=== PATIENT | female | born 1995 | race Caucasian/White ===

== ENCOUNTER 2019-06-16 07:55 | Inpatient (IN) | payer BC ==
[~2019-06-16 07:55] MED LIST: Bupivacaine/fentaNYL/NS 100 ML Bag ONE; Lidocaine 2% with EPINEPHrine 1:200,000 20 ML SDV ONE
--- NOTE | 2019-06-16 09:15 | US ---
Biophysical profile: Multiple real-time images were obtained. Comparison: Previous obstetrical ultrasounds are available, most recent exam is 06/15/19. presentation: Cephalic Placenta: Left sided and posterior Amniotic fluid: KADI 16.2 cm Biophysical profile: movement 2, breathing movement 2, tone 2, amniotic fluid volume 2 Impression: 1. 8 out of 8 on biophysical profile. Diagnostic code #1 This report was dictated in [place] Standard Time
[2019-06-16] MEDS ORDERED: Misoprostol 25 MCG (1/4 of 100 MCG) Tab ONE (10:14)
[2019-06-16] MEDS ORDERED: Sodium Chloride 0.9% 10 ML Syringe FLUSH PRN ×2 (10:32→20:14)
[2019-06-16] MEDS ORDERED: Nalbuphine 10 MG/1 ML Vial IVPUSH PRN (10:32)
[2019-06-16] MEDS ORDERED: Lactated Ringers 1,000 ML IV SCH (10:45)
[2019-06-16] MEDS ORDERED: Oxytocin/Lactated Ringers 10 UNIT/1,000 ML BAG IV SCH ×2 (10:45)
--- NOTE | 2019-06-16 11:01 | PCM.LDHP ---
L&D History of Present Illness - General Date of Service: 06/16/19 Admit Problem/Dx: Patient Status Order with Admit Dx/Problem 06/16/19 08:04 Patient Status [ADT] Routine Admission Diagnosis/Problem Admission Diagnosis/Problem Source of Information: Patient History Limitations: Reports: No Limitations - History of Present Illness Introduction:: 23 Y/O NAGI 07/10/2019 EGA 36w4d with persistent pruritus which has gotten worse since yesterday. Patient has been seen daily since Monday. BPP's 02/21 and reactive NST's daily since 06/12/2019. Patient's itching worsened since yesterday especially hands and feet. Live function labs reviewed. Cervix 1 cm, 50%, soft, posterior, vertex -2. GBS negative 06/12/2019 Contractions on NST q3min. Due to change in symptoms (increased pruritus) and contractions on NST, beginning medically indicated induction to try to avoid sudden intrauterine demise which can be associated cholestasis of (bile salts pending) /01/02 blood type A positive, antibody screen negative, hemoglobin/hematocrit 13.9/38.5, platelets 239,000, rubella immune, serology nonreactive, urine culture negative, HIV and hepatitis B surface antigen negative. GC and chlamydia probe negative. 04/10/19 hemoglobin/hematocrit 12.5 35.7 platelets 243,001 hour OB glucose screen 94 serology nonreactive. 06/12/19 GBS negative Plan medically indicated induction of labor 36 weeks 4 days due to increased severity of pruritus suspected cholestasis of . Contractions every 3 minutes on NST will augment with Cytotec. Cytotec 50 g placed intravaginally at 1020 hrs. Will repeat every 4 hours for 2 more doses and then reevaluated probably begin Pitocin. Timing/Duration: Reports: minutes: (Contractions every 3 minutes on nonstress test this morning (no contractions yesterday)) Location, : Reports: Abdomen, Lower back Quality: Reports: Ache, Dull Severity: Mild Pain Score: 2 Improves with: Reports: None Worsens with: Reports: None Associated Symptoms: Reports: N - Related Data Allergies/Adverse Reactions: Allergies Allergy/AdvReac Type Severity Reaction Status Date / Time No Known Allergies Allergy Verified 06/12/19 17:26 Home Medications: Home Meds Calcium Carbonate [Calcium] 1 tab PO DAILY 06/12/19 [History] Ferrous Sulfate [Iron] 1 tab PO DAILY 06/12/19 [History] Vit/FA/Fe Fumarate/Se [ MTR] 1 tab PO DAILY 06/12/19 [History] Nitrofurantoin Monohyd/M-Cryst [Macrobid 100 mg Capsule] 100 mg PO BID #20 capsule 06/13/19 [Rx] Potassium Chloride [K-Tab] 10 meq PO DAILY #30 tablet.er 06/15/19 [Rx] H&P Review of Systems - Review of Systems: Review Of Systems: See Below General: Reports: Other (Generalized pruritus with increased itching of palms and soles of feet since yesterday.) HEENT: Reports: No Symptoms Pulmonary: Reports: No Symptoms Cardiovascular: Reports: No Symptoms Gastrointestinal: Reports: No Symptoms Genitourinary: Reports: No Symptoms Musculoskeletal: Reports: No Symptoms Skin: Reports: No Symptoms Psychiatric: Reports: No Symptoms Neurological: Reports: No Symptoms Hematologic/Lymphatic: Reports: No Symptoms Immunologic: Reports: No Symptoms L&D Exam - Exam Exam: See Below - Vital Signs Weight: 153 lb 6.4 oz - OB Specific Fundal Height In cm: 36 Contraction Duration (sec): 45 Contraction Frequency (min): 3-5 Contraction Intensity: Mild Movement: Active Heart Tones: Present Heart Tones per Min: 135 Heart Rate (FHR) Variability: Moderate (6-25 bmp) Presentation: Vertex - Britton Score Britton Score Cervix Position: Posterior Britton Score Consistency: Soft Britton Score Effacement: 31-50% Britton Score Dilation: 1-2 cm Britton Score Infant's Station: -2 Britton Score Total: 5 - Exam General: Alert, Oriented HEENT: Conjunctiva Clear, Mucosa Moist & [place] Neck: Supple, Trachea Midline Lungs: Clear to Auscultation, Normal Respiratory Effort Cardiovascular: Regular Rate, Regular Rhythm GI/Abdominal Exam: Normal Bowel Sounds, Soft, Non-Tender Genitourinary: Normal external exam Extremities: Normal Inspection, Non-Tender, No Pedal Edema, Normal Capillary Refill Skin: Warm, Dry, Intact Psychiatric: Alert, Normal Affect, Normal Mood - Patient Data Lab Results Last 24 hrs: Laboratory Results - last 24 hr 06/16/19 06/16/19 Range/Units 08:20 08:20 WBC 9.66 (3.98-10.04) K/mm3 RBC 4.21 (3.98-5.22) M/mm3 Hgb 13.3 (11.2-15.7) gm/dl Hct 38.6 (34.1-44.9) % MCV 91.7 (79.4-94.8) fl MCH 31.6 (25.6-32.2) pg MCHC 34.5 (32.2-35.5) g/dl RDW Std Deviation 40.3 (36.4-46.3) fL Plt Count 271 (182-369) K/mm3 MPV 10.2 (9.4-12.3) fl Neut % (Auto) 71.9 H (34.0-71.1) % Lymph % (Auto) 17.0 L (19.3-51.7) % [place] % (Auto) 8.2 (4.7-12.5) % Eos % (Auto) 0.7 (0.7-5.8) Baso % (Auto) 0.4 (0.1-1.2) % Neut # (Auto) 6.95 H (1.56-6.13) K/mm3 Lymph # (Auto) 1.64 (1.18-3.74) K/mm3 [place] # (Auto) 0.79 H (0.24-0.36) K/mm3 Eos # (Auto) 0.07 (0.04-0.36) K/mm3 Baso # (Auto) 0.04 (0.01-0.08) K/mm3 Manual Slide Review Normal smear Sodium 136 (136-145) mEq/L Potassium 3.3 L (3.5-5.1) mEq/L Chloride 103 (98-107) mEq/L Carbon Dioxide 24 (21-32) mEq/L Anion Gap 12.3 (5-15) BUN 5 L (7-18) mg/dL Creatinine 0.6 (0.55-1.02) mg/dL Est Cr Clr Drug Dosing 130.10 mL/min Estimated GFR (MDRD) > 60 (>60) mL/min BUN/Creatinine Ratio 8.3 L (14-18) Glucose 119 H (74-106) mg/dL Calcium 8.2 L (8.5-10.1) mg/dL Total Bilirubin 1.0 (0.2-1.0) mg/dL GGT 13 (5-55) U/L AST 107 H (15-37) U/L ALT 320 H (14-59) U/L Alkaline Phosphatase 159 H (46-116) U/L Total Protein 6.7 (6.4-8.2) g/dl Albumin 2.7 L (3.4-5.0) g/dl Globulin 4.0 gm/dL Albumin/Globulin Ratio 0.7 L (1-2) Result Diagrams: 06/16/19 08:20 06/16/19 08:20 - Problem List (1) Itch of skin SNOMED Code(s): 522258731 ICD Code: L29.9 - PRURITUS, UNSPECIFIED Status: Acute Current Visit: Yes (2) Hypokalemia SNOMED Code(s): 85272887 ICD Code: E87.6 - HYPOKALEMIA Status: Acute Current Visit: Yes (3) 36 weeks gestation of SNOMED Code(s): 48508822 ICD Code: Z3A.36 - 36 WEEKS GESTATION OF Status: Acute Current Visit: No (4) Abnormal liver enzymes SNOMED Code(s): 345651843 ICD Code: R74.8 - ABNORMAL LEVELS OF OTHER SERUM ENZYMES Status: Acute Current Visit: No Problem List Initiated/Reviewed/Updated: No Orders Last 24hrs: Active Orders 24 hr Category Date Time Status Patient Status [ADT] Routine ADT 06/16/19 08:04 Active Activity as Tolerated [RC] PFP Care 06/16/19 10:32 Active Communication Order [RC] ASDIRECTED Care 06/16/19 10:32 Active Heart Tones [RC] ASDIRECTED Care 06/16/19 10:34 Active Non Stress Test [RC] PER UNIT ROUTINE Care 06/16/19 08:04 Active Notify Provider [RC] PFP Care 06/16/19 10:32 Active Notify Provider [RC] PRN Care 06/16/19 10:32 Active Peripheral IV Care [RC] . DIRECTED Care 06/16/19 10:34 Active Vital Signs [RC] PER UNIT ROUTINE Care 06/16/19 08:04 Active Regular Diet [DIET] Diet 06/16/19 Breakfast Active RAPID PLASMA REAGIN,RPR [CHEM] Routine Lab 06/16/19 10:32 Ordered TYPE AND SCREEN [BBK] Stat Lab 06/16/19 10:32 Ordered Lactated Ringers [Ringers, Lactated] 1,000 ml Med 06/16/19 10:45 Active IV ASDIRECTED Nalbuphine [Nubain] Med 06/16/19 10:32 Active 10 mg IVPUSH Q2H PRN Oxytocin/Lactated Ringers [Pitocin in LR 10 Units/1,000 Med 06/16/19 10:45 Active ML] 10 unit in 1,000 ml IV .CONTINUOUS Oxytocin/Lactated Ringers [Pitocin in LR 10 Units/1,000 Med 06/16/19 10:45 Active ML] 10 unit in 1,000 ml IV TITRATE Sodium Chloride 0.9% [Saline Flush] Med 06/16/19 10:32 Active 10 ml FLUSH ASDIRECTED PRN miSOPROStoL [Cytotec] Med 06/16/19 14:30 Active 50 mcg VAG Q4HR Electronic Heart Tones Ext w TOCO [WOMSER] Oth 06/16/19 10:32 Ordered Routine Electronic Heart Tones Internal [WOMSER] Per Unit Oth 06/16/19 10:32 Ordered Routine Peripheral IV Insertion Adult [OM.PC] Routine Oth 06/16/19 10:32 Ordered Resuscitation Status Routine Resus Stat 06/16/19 08:04 Ordered Medication Orders Lactated Ringer's (Ringers, Lactated) 1,000 mls @ 100 mls/hr IV ASDIRECTED JENNIFER Oxytocin/Lactated Ringer's (Pitocin In Lr 10 Units/1,000 Ml) 10 unit in 1,000 mls @ 100 mls/hr IV .CONTINUOUS JENNIFER Oxytocin/Lactated Ringer's (Pitocin In Lr 10 Units/1,000 Ml) 10 unit in 1,000 mls @ 12 mls/hr IV TITRATE JENNIFER; Protocol Misoprostol (Cytotec) 50 mcg VAG Q4HR JENNIFER Nalbuphine HCl (Nubain) 10 mg IVPUSH Q2H PRN PRN Reason: Pain Sodium Chloride (Saline Flush) 10 ml FLUSH ASDIRECTED PRN PRN Reason: Keep Vein Open Assessment/Plan Comment:: Line: Medically indicated induction of labor due to suspected cholestasis of with increased severity of symptoms. EFW 6 /2 pounds
[2019-06-16] MEDS: Potassium Chloride 20 MEQ Tab.ER PO SCH (12:34)
--- NOTE | 2019-06-16 16:11 | PCM.SN ---
- Free Text/Narrative Note: 06/16/2019 1602 amniotomy performed, clear fluid, cervix 3 cm, 70%, soft, mid- position, vertex -1 station. Early decelerations with contractions.
[2019-06-16] MEDS ORDERED: diphenhydrAMINE 50 MG/ML SDV IVPUSH PRN ×2 (16:53→20:14)
[2019-06-16] MEDS ORDERED: fentaNYL 100 MCG/2 ML SDV EPIDUR PRN (16:53)
[2019-06-16] MEDS ORDERED: fentaNYL/Bupivacaine/NS 2 MCG-0.125% 250 ML EPIDUR PRN (16:53)
[2019-06-16] MEDS ORDERED: ePHEDrine 50 MG/ML SDV IVPUSH PRN ×2 (16:53→20:14)
[2019-06-16] MEDS ORDERED: Propofol 200 MG/20 ML SDV ONE (18:02)
[2019-06-16] MEDS ORDERED: Succinylcholine/Normal Saline 100 MG/5 ML Syringe ONE (18:02)
[2019-06-16] MEDS ORDERED: ePHEDrine/Normal Saline 25 MG/5 ML Syringe ONE (18:16)
[2019-06-16] MEDS ORDERED: Oxytocin 10 Units/1 ML SDV ONE (18:16)
[2019-06-16] MEDS ORDERED: Morphine PF 10 MG/10 ML SDV ONE (18:18)
[2019-06-16] MEDS ORDERED: Dexamethasone 4 MG/ML SDV ONE (18:26)
[2019-06-16] MEDS ORDERED: Ketorolac 30 MG/ML SDV ONE (18:26)
[2019-06-16] MEDS ORDERED: Ondansetron 4 MG/2 ML SDV ONE (18:26)
[2019-06-16] MEDS ORDERED: ceFAZolin 1 GM Vial ONE (18:53)
--- NOTE | 2019-06-16 19:08 | PCM.OPNOTE ---
- General Post-Op/Procedure Note Date of Surgery/Procedure: 06/16/19 Operative Procedure(s): Primary low segment transverse emergency 2 layer closure Pre Op Diagnosis: Nonreassuring heart tones with severe variable deceleration Post-Op Diagnosis: Same plus nuchal cord 1 tight Anesthesia Technique: Epidural, General ET Tube Primary Surgeon: Bebeto Purdy Anesthesia Provider: Pepe Nation Order Entry Specialist: Melissa Giraldo (ESTEVAN) Reason Order Entry Specialist Was Necessary: Emergency section without Asst. Role of Order Entry Specialist: Emergency section without Asst. Fluid Replacement, Intraop: 1,800 Output, Urine Amount: 600 EBL in mLs: 200 Drain/Tube Comments:: Rangel Complications: Emergency section unable to count instruments and sponges prior to surgery x-ray was obtained prior to patient leaving the operating room and no indication of retained instrument or sponges. One wire was overlying the right internal jugular region was external to the patient on anterior chest and the wire noted at L3-L4 was epidural catheter Condition: Good Free Text/Narrative:: Patient had sudden heart tone decelerations without recovery into the range of 50-60s and a emergency section was called at 1757. Patient was transported rapidly to the operating room in labor and delivery arriving in 1800 hrs. Rangel catheter was placed to gravity drainage. Iodine was poured over the area of the planned incision. Draped in a sterile fashion. An emergency section begun at 1806 hrs. the incision was made transversely menses Pfannenstiel) care was sharp section to into the anterior fascia. Peritoneal cavity was entered without difficulty. A low segment transverse was performed without time to perform a bladder flap because of the emergency nature of the procedure. Fluid was clear upon entry into the abdominal cavity the male liveborn was delivered at 1810 hrs. nuchal cord 1 tight reduced without difficulty over the head. Apgars 6/9 weight 2080 grams/[address] Obando hotel services sales representative present at delivery and cared for the . A section of cord was taken for arterial and venous blood gases. The arterial blood gas collected at 1810 and run at 1825 hrs. pH 7.13, PCO2 79.7, PO2 21; venous blood gases run at 1827 pH 7.22, PCO2 56.4, PO2 of 39. Cord blood was collected from three-vessel cord. The placenta was removed manually inspected and discarded. Endometrial cavity was inspected the uterine incision was closed in 2 layers first layer running locking suture of 0 Monocryl, second layer horizontal imbricating suture modified Lembert type. Both tubes and ovaries were normal clot screen from the gutters and the uterus placed into the abdominal cavity. The anterior fascia was closed with #1 PDS running suture. Irrigation was carried out and the skin was closed with subcuticular 3-0 Monocryl on Saul needle and Dermabond Preneo placed over the incision. Clots were cleaned from the vagina at the end procedure. Because of the emergent nature of the procedure time was not available to count instruments and sponges and lap tapes. An x-ray was obtained while the patient was in the operating room showing the entire abdomen and chest (2 films) and no lap tapes sponges or instruments visualized by me or by radiologist reading the x-rays. The only abnormalities noted by the radiologist were "a wire extending from the right internal jugular region just to the right of the thoracic spine into the abdomen with the distal end overlying the lumbar spine". "This is suspected to be outside the patient". (That is correct the lead for anesthesia on anterior chest) and "a circular wire density overlying L3-L4 disc space of indeterminate nature" (epidural catheter removed after surgery and after the x- ray) Patient was transported to postanesthesia care unit after the x-ray reading was reported. No blood transfusions required. Patient did receive Ancef 2 g intravenously after the incision had been made on the abdomen. This note was created, at least in part, by the use of Curse voice dictation system. Inadvertent typographical errors, due to software recognition problems, may exist.
--- NOTE | 2019-06-16 19:14 | PCM.POSTAN ---
POST ANESTHESIA ASSESSMENT - MENTAL STATUS Mental Status: Alert, Oriented - VITAL SIGNS Vital Signs: Last Vital Signs Temp 37.1 C 06/16/19 08:58 Pulse 90 06/16/19 08:58 Resp 18 06/16/19 08:58 BP 120/71 06/16/19 08:58 Pulse Ox 100 06/16/19 08:58 - RESPIRATORY Respiratory Status: Respiratory Rate WNL, Airway Patent, O2 Saturation Stable - CARDIOVASCULAR CV Status: Pulse Rate WNL, Blood Pressure Stable - GASTROINTESTINAL GI Status: No Symptoms - PAIN Pain Score: 0 - POST OP HYDRATION Hydration Status: Adequate & Stable - OBSERVATIONS Free Text/Narrative:: Case went as well as could be expected under the conditions. Patient resting in PACU. Awake. Oriented X4. 0/10 pain. VSS, SV, CTAB. No complications.
--- NOTE | 2019-06-16 19:17 | PCM.PREANE ---
Preanesthetic Assessment - Procedure Proposed Procedure: JOSIANE - Anesthesia/Transfusion/Family Hx Anesthesia History: Prior Anesthesia Without Reaction Family History of Anesthesia Reaction: No Transfusion History: No Prior Transfusion(s) Anesthesia/Transfusion Comment: No previous anesthesia problems or difficulties with intubation per patient - Review of Systems General: No Symptoms Pulmonary: No Symptoms Cardiovascular: No Symptoms Gastrointestinal: No Symptoms Neurological: No Symptoms Other: Reports: None - Physical Assessment NPO Status Date: 06/16/19 NPO Status Time: 17:00 (patient considered full stomach) Vital Signs: Last Vital Signs Temp 37.1 C 06/16/19 08:58 Pulse 90 06/16/19 08:58 Resp 18 06/16/19 08:58 BP 120/71 06/16/19 08:58 Pulse Ox 100 06/16/19 08:58 Height: 5 ft 5 in Weight: 69.581 kg ASA Class: 1 Mental Status: Alert & Oriented x3 Airway Class: Mallampati = 1 Dentition: Reports: Normal Dentition Thyro-Mental Finger Breadths: 3 Mouth Opening Finger Breadths: 3 ROM/Head Extension: Full Lungs: Clear to Auscultation, Normal Respiratory Effort Cardiovascular: Regular Rate, Regular Rhythm - Lab Values: Laboratory Last Values WBC 9.66 K/mm3 (3.98-10.04) 06/16/19 08:20 RBC 4.21 M/mm3 (3.98-5.22) 06/16/19 08:20 Hgb 13.3 gm/dl (11.2-15.7) 06/16/19 08:20 Hct 38.6 % (34.1-44.9) 06/16/19 08:20 MCV 91.7 fl (79.4-94.8) 06/16/19 08:20 MCH 31.6 pg (25.6-32.2) 06/16/19 08:20 MCHC 34.5 g/dl (32.2-35.5) 06/16/19 08:20 RDW Std Deviation 40.3 fL (36.4-46.3) 06/16/19 08:20 Plt Count 271 K/mm3 (182-369) 06/16/19 08:20 MPV 10.2 fl (9.4-12.3) 06/16/19 08:20 Neut % (Auto) 71.9 % (34.0-71.1) H 06/16/19 08:20 Lymph % (Auto) 17.0 % (19.3-51.7) L 06/16/19 08:20 [place] % (Auto) 8.2 % (4.7-12.5) 06/16/19 08:20 Eos % (Auto) 0.7 (0.7-5.8) 06/16/19 08:20 Baso % (Auto) 0.4 % (0.1-1.2) 06/16/19 08:20 Neut # (Auto) 6.95 K/mm3 (1.56-6.13) H 06/16/19 08:20 Lymph # (Auto) 1.64 K/mm3 (1.18-3.74) 06/16/19 08:20 [place] # (Auto) 0.79 K/mm3 (0.24-0.36) H 06/16/19 08:20 Eos # (Auto) 0.07 K/mm3 (0.04-0.36) 06/16/19 08:20 Baso # (Auto) 0.04 K/mm3 (0.01-0.08) 06/16/19 08:20 Manual Slide Review Normal smear 06/16/19 08:20 Sodium 136 mEq/L (136-145) 06/16/19 08:20 Potassium 3.3 mEq/L (3.5-5.1) L 06/16/19 08:20 Chloride 103 mEq/L (98-107) 06/16/19 08:20 Carbon Dioxide 24 mEq/L (21-32) 06/16/19 08:20 Anion Gap 12.3 (5-15) 06/16/19 08:20 BUN 5 mg/dL (7-18) L 06/16/19 08:20 Creatinine 0.6 mg/dL (0.55-1.02) 06/16/19 08:20 Est Cr Clr Drug Dosing 130.10 mL/min 06/16/19 08:20 Estimated GFR (MDRD) > 60 mL/min (>60) 06/16/19 08:20 BUN/Creatinine Ratio 8.3 (14-18) L 06/16/19 08:20 Glucose 119 mg/dL (74-106) H 06/16/19 08:20 Calcium 8.2 mg/dL (8.5-10.1) L 06/16/19 08:20 Total Bilirubin 1.0 mg/dL (0.2-1.0) 06/16/19 08:20 GGT 13 U/L (5-55) 06/16/19 08:20 AST 107 U/L (15-37) H 06/16/19 08:20 ALT 320 U/L (14-59) H 06/16/19 08:20 Alkaline Phosphatase 159 U/L (46-116) H 06/16/19 08:20 Total Protein 6.7 g/dl (6.4-8.2) 06/16/19 08:20 Albumin 2.7 g/dl (3.4-5.0) L 06/16/19 08:20 Globulin 4.0 gm/dL 06/16/19 08:20 Albumin/Globulin Ratio 0.7 (1-2) L 06/16/19 08:20 Blood Type A POSITIVE 06/16/19 08:20 Gel Antibody Screen Negative 06/16/19 08:20 - Allergies Allergies/Adverse Reactions: Allergies Allergy/AdvReac Type Severity Reaction Status Date / Time No Known Allergies Allergy Verified 06/12/19 17:26 - Anesthesia Plan Pre-Op Medication Ordered: None - Acknowledgements Anesthesia Type Planned: Epidural Pt an Appropriate Candidate for the Planned Anesthesia: Yes Alternatives and Risks of Anesthesia Discussed w Pt/Guardian: Yes Pt/Guardian Understands and Agrees with Anesthesia Plan: Yes PreAnesthesia Questionnaire Other HEENT History: wears glasses Other Cardiovascular History: hx of murmur when small MARKETING OPERATIONS ANALYST History: Reports: , Spontaneous - Past Surgical History Other Musculoskeletal Surgeries/Procedures:: 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 - SUBSTANCE USE Smoking Status *Q: Never Smoker Second Hand Smoke Exposure: No Recreational Drug Use History: No - HOME MEDS Home Medications: Home Meds Calcium Carbonate [Calcium] 1 tab PO DAILY 06/12/19 [History] Ferrous Sulfate [Iron] 1 tab PO DAILY 06/12/19 [History] Vit/FA/Fe Fumarate/Se [ MTR] 1 tab PO DAILY 06/12/19 [History] Nitrofurantoin Monohyd/M-Cryst [Macrobid 100 mg Capsule] 100 mg PO BID #20 capsule 06/13/19 [Rx] Potassium Chloride [K-Tab] 10 meq PO DAILY #30 tablet.er 06/15/19 [Rx] - CURRENT (IN HOUSE) MEDS Current Meds: Current Medications Diphenhydramine HCl (Benadryl) 25 mg IVPUSH Q6H PRN PRN Reason: pruritis Ephedrine Sulfate (Ephedrine Sulfate) 5 mg IVPUSH ASDIRECTED PRN PRN Reason: Hypotension Fentanyl (Sublimaze) 100 mcg EPIDUR Q3H PRN PRN Reason: Pain Fentanyl/Bupivacaine HCl (Fentanyl/Bupivacaine/Ns 2 Mcg-0.125% 250 Ml) 250 ml EPIDUR CONTINUOUS PRN PRN Reason: Pain Lactated Ringer's (Ringers, Lactated) 1,000 mls @ 100 mls/hr IV ASDIRECTED JENNIFER Oxytocin/Lactated Ringer's (Pitocin In Lr 10 Units/1,000 Ml) 10 unit in 1,000 mls @ 100 mls/hr IV .CONTINUOUS JENNIFER Oxytocin/Lactated Ringer's (Pitocin In Lr 10 Units/1,000 Ml) 10 unit in 1,000 mls @ 12 mls/hr IV TITRATE JENNIFER; Protocol Misoprostol (Cytotec) 50 mcg VAG Q4HR JENNIFER Nalbuphine HCl (Nubain) 10 mg IVPUSH Q2H PRN PRN Reason: Pain Sodium Chloride (Saline Flush) 10 ml FLUSH ASDIRECTED PRN PRN Reason: Keep Vein Open Discontinued Medications Cefazolin Sodium (Ancef) Confirm Administered Dose 2 gm .ROUTE .STK-MED ONE Stop: 06/16/19 18:54 Dexamethasone (Dexamethasone) Confirm Administered Dose 4 mg .ROUTE .STK-MED ONE Stop: 06/16/19 18:27 Ephedrine Sulfate (Ephedrine In Ns) Confirm Administered Dose 25 mg .ROUTE .STK- MED ONE Stop: 06/16/19 18:17 Ketorolac Tromethamine (Toradol) Confirm Administered Dose 30 mg .ROUTE .STK- MED ONE Stop: 06/16/19 18:27 Misoprostol (Cytotec) Confirm Administered Dose 50 mcg .ROUTE .STK-MED ONE Stop: 06/16/19 10:15 Last Admin: 06/16/19 10:30 Dose: 50 mcg Morphine Sulfate (Duramorph Pf) Confirm Administered Dose 10 mg .ROUTE .STK-MED ONE Stop: 06/16/19 18:19 Ondansetron HCl (Zofran) Confirm Administered Dose 4 mg .ROUTE .STK-MED ONE Stop: 06/16/19 18:27 Oxytocin (Pitocin) Confirm Administered Dose 20 unit .ROUTE .STK-MED ONE Stop: 06/16/19 18:17 Potassium Chloride (Klor-Con M20) 20 meq PO Q4H JENNIFER Stop: 06/16/19 16:31 Last Admin: 06/16/19 12:34 Dose: 20 meq Propofol (Diprivan 20 Ml) Confirm Administered Dose 200 mg .ROUTE .STK-MED ONE Stop: 06/16/19 18:03 Succinylcholine Chloride (Succinylcholine In Ns Pf) Confirm Administered Dose 100 mg .ROUTE .STK-MED ONE Stop: 06/16/19 18:03
--- NOTE | 2019-06-16 19:29 | PCM.SN ---
- Free Text/Narrative Note: I was called at [address] a labor epidural and to assist placing a PIV. I arrived about 1700 to the patient's room. She was having labor pain and needed an IV. I proceeded to place the IV X1 attempt in her right AC (20g). After that I interviewed the patient and consented her for labor epidural and possible general anesthetic. When we placed the patient in the sitting position the baby decelerated. We laid her in the lateral position and the baby recovered. The physician was called due to the concern. We elected to place the epidural laterally, which I did routinely. There was negative heme, negative dysthesia, negative CSF, easy threading of the catheter, and negative aspiration and test dose with 3 mL 1.5% lidocaine in 1:200,000 epinephrine. I then proceeded to start the continuous rate of the stock solution at 10 mL/hour , as well as administer a 100 mcg fentanyl bolus through the epidural catheter. The physician arrived at the bedside and began to examine the patient. The test dose was placed at 1743 and a stat section was called at 1757. We hurriedly went to the OR where a successful was performed.
[2019-06-16] MEDS ORDERED: Acetaminophen 325 MG Tab PO PRN (20:14)
[2019-06-16] MEDS ORDERED: Naloxone 0.4 MG/ML SDV IVPUSH PRN (20:14)
[2019-06-16] MEDS ORDERED: Witch Hazel Medicated Pads 40/Jar TOP PRN (20:14)
[2019-06-16] MEDS ORDERED: Oxytocin/Lactated Ringers 20 UNIT/1,000 ML BAG IV SCH (20:14)
[2019-06-16] MEDS ORDERED: Dextrose 5%-Lactated Ringers 1,000 ML IV SCH (20:14)
[2019-06-16] MEDS: Simethicone 80 MG Tab.Chew PO SCH (22:52)
[2019-06-17] MEDS ORDERED: ceFAZolin 1 GM Vial IV SCH
[2019-06-17] MEDS: ceFAZolin 1 GM in Premix Bag 1 BAG IV SCH ×3 (00:39→12:28)
[2019-06-17] MEDS: Ketorolac 30 MG/ML SDV IVPUSH SCH ×3 (00:40→12:28)
[2019-06-17] MEDS ORDERED: Ondansetron 4 MG/2 ML SDV IVPUSH ONE (00:48)
--- NOTE | 2019-06-17 08:00 | PCM.SN ---
- Free Text/Narrative Note: PPD/POD #1 Afebrile. No heavy vaginal bleeding. Incision has no drainage per patient ( patient holding baby) no leg cramping. Patient is stable. Hemoglobin/hematocrit 13.3/38.6 and this morning 10.9/32.
[2019-06-17] MEDS: Simethicone 80 MG Tab.Chew PO SCH ×3 (08:39→18:51)
--- NOTE | 2019-06-17 09:32 | CR ---
Abdomen: Supine view of the abdomen was obtained. Comparison: No prior abdominal imaging. Findings: Endotracheal tube is seen with tip lying at the level of the clavicles. Catheter is seen overlying the right chest and mid right abdomen, uncertain as to etiology. Haziness within the pelvis is seen most likely representing uterus. Bowel gas pattern is normal. No radiopaque foreign object is seen. Finding showing increased density within the rim around an oval object overlying the L3-L4 interspace. Impression: 1. Oval rim area of increased density overlying the interspace of L3-L4. Difficult to exclude a retained surgical material. 2. Other findings which are felt to be incidental as noted above. Diagnostic code #3 This report was dictated in [place] Standard Time I agree with preliminary report issued by [facility] ([facility] report finalized on 06/16/19, 7:52 PM Central Time)
[2019-06-17] MEDS: Acetaminophen/oxyCODONE 325-5 MG Tab PO PRN (13:28)
[2019-06-17] MEDS: Potassium Chloride 20 MEQ Tab.ER PO SCH (14:28)
[2019-06-17] MEDS: Misoprostol 25 MCG (1/4 of 100 MCG) Tab VAG SCH (14:31)
[2019-06-17] MEDS: Ibuprofen 600 MG Tab PO PRN (18:51)
[2019-06-18] MEDS: Acetaminophen/oxyCODONE 325-5 MG Tab PO PRN ×4 (00:40→22:05)
[2019-06-18] MEDS: Simethicone 80 MG Tab.Chew PO SCH ×4 (02:32→22:05)
--- NOTE | 2019-06-18 07:28 | PCM.SN ---
- Free Text/Narrative Note: Afebrile, doing well. Uterus involuting, incision healing well, no heavy vaginal bleeding, no leg raven or cramping. Probably home tomorrow. Baby having difficulty latching on for breast feeding.
[2019-06-18] MEDS: Docusate Sodium 100 MG Cap PO PRN (22:07)
[2019-06-19] MEDS: Simethicone 80 MG Tab.Chew PO SCH ×3 (01:01→14:08)
[2019-06-19] MEDS: Acetaminophen/oxyCODONE 325-5 MG Tab PO PRN ×3 (03:10→14:04)
[2019-06-19] MEDS: Docusate Sodium 100 MG Cap PO PRN (03:16)
--- NOTE | 2019-06-19 08:05 | PCM.DCSUM1 ---
Discharge Summary - Hospital Course Free Text/Narrative:: [facility] Post-Op/Procedure Note Patient Name: ADY AGUAYO Date of : 89 Patient Status: Inpatient Attending Provider: Bebeto Purdy Date: 06/16/19 19:02 Initialization Date: 06/16/19 19:02 - General Post-Op/Procedure Note Date of Surgery/Procedure: 06/16/19 Operative Procedure(s): Primary low segment transverse emergency 2 layer closure Pre Op Diagnosis: Nonreassuring heart tones with severe variable deceleration Post-Op Diagnosis: Same plus nuchal cord 1 tight Anesthesia Technique: Epidural, General ET Tube Primary Surgeon: Bebeto Purdy Anesthesia Provider: Pepe Nation Hide Spreader: Melissa Giraldo (PAS) Reason Hide Spreader Was Necessary: Emergency section without Asst. Role of Hide Spreader: Emergency section without Asst. Fluid Replacement, Intraop: 1,800 Output, Urine Amount: 600 EBL in mLs: 200 Drain/Tube Comments:: Rangel Complications: Emergency section unable to count instruments and sponges prior to surgery x-ray was obtained prior to patient leaving the operating room and no indication of retained instrument or sponges. One wire was overlying the right internal jugular region was external to the patient on anterior chest and the wire noted at L3-L4 was epidural catheter Condition: Good Free Text/Narrative:: Patient had sudden heart tone decelerations without recovery into the range of 50-60s and a emergency section was called at 1757. Patient was transported rapidly to the operating room in labor and delivery arriving in 1800 hrs. Rangel catheter was placed to gravity drainage. Iodine was poured over the area of the planned incision. Draped in a sterile fashion. An emergency section begun at 1806 hrs. the incision was made transversely menses Pfannenstiel) care was sharp section to into the anterior fascia. Peritoneal cavity was entered without difficulty. A low segment transverse was performed without time to perform a bladder flap because of the emergency nature of the procedure. Fluid was clear upon entry into the abdominal cavity the male liveborn was delivered at 1810 hrs. nuchal cord 1 tight reduced without difficulty over the head. Apgars 6/9 weight 2080 grams/[address] Obando sexual abuse counsellor present at delivery and cared for the . A section of cord was taken for arterial and venous blood gases. The arterial blood gas collected at 1810 and run at 1825 hrs. pH 7.13, PCO2 79.7, PO2 21; venous blood gases run at 1827 pH 7.22, PCO2 56.4, PO2 of 39. Cord blood was collected from three-vessel cord. The placenta was removed manually inspected and discarded. Endometrial cavity was inspected the uterine incision was closed in 2 layers first layer running locking suture of 0 Monocryl, second layer horizontal imbricating suture modified Lembert type. Both tubes and ovaries were normal clot screen from the gutters and the uterus placed into the abdominal cavity. The anterior fascia was closed with #1 PDS running suture. Irrigation was carried out and the skin was closed with subcuticular 3-0 Monocryl on Saul needle and Dermabond Preneo placed over the incision. Clots were cleaned from the vagina at the end procedure. Because of the emergent nature of the procedure time was not available to count instruments and sponges and lap tapes. An x-ray was obtained while the patient was in the operating room showing the entire abdomen and chest (2 films) and no lap tapes sponges or instruments visualized by me or by radiologist reading the x-rays. The only abnormalities noted by the radiologist were "a wire extending from the right internal jugular region just to the right of the thoracic spine into the abdomen with the distal end overlying the lumbar spine". "This is suspected to be outside the patient". (That is correct the lead for anesthesia on anterior chest) and "a circular wire density overlying L3-L4 disc space of indeterminate nature" (epidural catheter removed after surgery and after the x- ray) Patient was transported to postanesthesia care unit after the x-ray reading was reported. No blood transfusions required. Patient did receive Ancef 2 g intravenously after the incision had been made on the abdomen. This note was created, at least in part, by the use of [employer] voice dictation system. Inadvertent typographical errors, due to software recognition problems, may exist. HPI Initial Comments: [facility] Post-Op/Procedure Note Patient Name: ADY AGUAYO Date of : 89 Patient Status: Inpatient Attending Provider: Bebeto Purdy Date: 06/16/19 19:02 Initialization Date: 06/16/19 19:02 - General Post-Op/Procedure Note Date of Surgery/Procedure: 06/16/19 Operative Procedure(s): Primary low segment transverse emergency 2 layer closure Pre Op Diagnosis: Nonreassuring heart tones with severe variable deceleration Post-Op Diagnosis: Same plus nuchal cord 1 tight Anesthesia Technique: Epidural, General ET Tube Primary Surgeon: Bebeto Purdy Anesthesia Provider: Pepe Nation Hide Spreader: Melissa Giraldo (PAS) Reason Hide Spreader Was Necessary: Emergency section without Asst. Role of Hide Spreader: Emergency section without Asst. Fluid Replacement, Intraop: 1,800 Output, Urine Amount: 600 EBL in mLs: 200 Drain/Tube Comments:: Rangel Complications: Emergency section unable to count instruments and sponges prior to surgery x-ray was obtained prior to patient leaving the operating room and no indication of retained instrument or sponges. One wire was overlying the right internal jugular region was external to the patient on anterior chest and the wire noted at L3-L4 was epidural catheter Condition: Good Free Text/Narrative:: Patient had sudden heart tone decelerations without recovery into the range of 50-60s and a emergency section was called at 1757. Patient was transported rapidly to the operating room in labor and delivery arriving in 1800 hrs. Rangel catheter was placed to gravity drainage. Iodine was poured over the area of the planned incision. Draped in a sterile fashion. An emergency section begun at 1806 hrs. the incision was made transversely menses Pfannenstiel) care was sharp section to into the anterior fascia. Peritoneal cavity was entered without difficulty. A low segment transverse was performed without time to perform a bladder flap because of the emergency nature of the procedure. Fluid was clear upon entry into the abdominal cavity the male liveborn was delivered at 1810 hrs. nuchal cord 1 tight reduced without difficulty over the head. Apgars 6/9 weight 2080 grams/[address] Obando sexual abuse counsellor present at delivery and cared for the . A section of cord was taken for arterial and venous blood gases. The arterial blood gas collected at 1810 and run at 1825 hrs. pH 7.13, PCO2 79.7, PO2 21; venous blood gases run at 1827 pH 7.22, PCO2 56.4, PO2 of 39. Cord blood was collected from three-vessel cord. The placenta was removed manually inspected and discarded. Endometrial cavity was inspected the uterine incision was closed in 2 layers first layer running locking suture of 0 Monocryl, second layer horizontal imbricating suture modified Lembert type. Both tubes and ovaries were normal clot screen from the gutters and the uterus placed into the abdominal cavity. The anterior fascia was closed with #1 PDS running suture. Irrigation was carried out and the skin was closed with subcuticular 3-0 Monocryl on Saul needle and Dermabond Preneo placed over the incision. Clots were cleaned from the vagina at the end procedure. Because of the emergent nature of the procedure time was not available to count instruments and sponges and lap tapes. An x-ray was obtained while the patient was in the operating room showing the entire abdomen and chest (2 films) and no lap tapes sponges or instruments visualized by me or by radiologist reading the x-rays. The only abnormalities noted by the radiologist were "a wire extending from the right internal jugular region just to the right of the thoracic spine into the abdomen with the distal end overlying the lumbar spine". "This is suspected to be outside the patient". (That is correct the lead for anesthesia on anterior chest) and "a circular wire density overlying L3-L4 disc space of indeterminate nature" (epidural catheter removed after surgery and after the x- ray) Patient was transported to postanesthesia care unit after the x-ray reading was reported. No blood transfusions required. Patient did receive Ancef 2 g intravenously after the incision had been made on the abdomen. This note was created, at least in part, by the use of [employer] voice dictation system. Inadvertent typographical errors, due to software recognition problems, may exist. Brief History: [facility] . Post-Op/Procedure Note. Patient Name: ADY AGUAYOedical Record Number: [id number]. Date of : [birth year]Patient Status: Inpatient. Attending Provider: Bebeto Purdyount Number: [id number]. Date: 06/16/19 19:02Initialization Date: 08/04 19:02. - General Post-Op/Procedure Note. Date of Surgery/Procedure: 08/04. Operative Procedure(s): Primary low segment transverse emergency 2 layer closure. Pre Op Diagnosis: Nonreassuring heart tones with severe variable deceleration. Post-Op Diagnosis: Same plus nuchal cord 1 tight. Anesthesia Technique: Epidural, General ET Tube. Primary Surgeon: Bebeto Purdy. Anesthesia Provider: Pepe Nation. Hide Spreader: Melissa Giraldo (ESTEVAN). Reason Hide Spreader Was Necessary: Emergency section without Asst. Role of Hide Spreader: Emergency section without Asst. Fluid Replacement, Intraop: 1,800. Output, Urine Amount: 600. EBL in mLs: 200. Drain/Tube Comments:: Rangel. Complications: Emergency section unable to count instruments and sponges prior to surgery x-ray was obtained prior to patient leaving the operating room and no indication of retained instrument or sponges. One wire was overlying the right internal jugular region was external to the patient on anterior chest and the wire noted at L3-L4 was epidural catheter. Condition: Good. Free Text/Narrative:: Patient had sudden heart tone decelerations without recovery into the range of 50-60s and a emergency section was called at 1757. Patient was transported rapidly to the operating room in labor and delivery arriving in 1800 hrs. Rangel catheter was placed to gravity drainage. Iodine was poured over the area of the planned incision. Draped in a sterile fashion. An emergency section begun at 1806 hrs. the incision was made transversely menses Pfannenstiel) care was sharp section to into the anterior fascia. Peritoneal cavity was entered without difficulty. A low segment transverse was performed without time to perform a bladder flap because of the emergency nature of the procedure. Fluid was clear upon entry into the abdominal cavity the male liveborn was delivered at 1810 hrs. nuchal cord 1 tight reduced without difficulty over the head. Apgars 6/9 weight 2080 grams/[address] Obando sexual abuse counsellor present at delivery and cared for the . A section of cord was taken for arterial and venous blood gases. The arterial blood gas collected at 1810 and run at 1825 hrs. pH 7.13, PCO2 79.7, PO2 21; venous blood gases run at 1827 pH 7.22, PCO2 56.4, PO2 of 39. Cord blood was collected from three-vessel cord. The placenta was removed manually inspected and discarded. Endometrial cavity was inspected the uterine incision was closed in 2 layers first layer running locking suture of 0 Monocryl, second layer horizontal imbricating suture modified Lembert type. Both tubes and ovaries were normal clot screen from the gutters and the uterus placed into the abdominal cavity. The anterior fascia was closed with #1 PDS running suture. Irrigation was carried out and the skin was closed with subcuticular 3-0 Monocryl on Saul needle and Dermabond Preneo placed over the incision. Clots were cleaned from the vagina at the end procedure. Because of the emergent nature of the procedure time was not available to count instruments and sponges and lap tapes. An x-ray was obtained while the patient was in the operating room showing the entire abdomen and chest (2 films) and no lap tapes sponges or instruments visualized by me or by radiologist reading the x-rays. The only abnormalities noted by the radiologist were "a wire extending from the right internal jugular region just to the right of the thoracic spine into the abdomen with the distal end overlying the lumbar spine". "This is suspected to be outside the patient". (That is correct the lead for anesthesia on anterior chest) and "a circular wire density overlying L3-L4 disc space of indeterminate nature" (epidural catheter removed after surgery and after the x-ray). Patient was transported to postanesthesia care unit after the x-ray reading was reported. No blood transfusions required. Patient did receive Ancef 2 g intravenously after the incision had been made on the abdomen. This note was created, at least in part, by the use of [employer] voice dictation system. Inadvertent typographical errors, due to software recognition problems, may exist. Diagnosis: Stroke: No - Discharge Data Discharge Date: 06/19/19 Discharge Disposition: Home, Self-Care 01 Condition: Good - Referral to Home Health Primary Care Physician: Rico Villalobos MD - Discharge Diagnosis/Problem(s) (1) Itch of skin SNOMED Code(s): 860618765 ICD Code: L29.9 - PRURITUS, UNSPECIFIED Status: Acute Current Visit: Yes (2) Hypokalemia SNOMED Code(s): 02079173 ICD Code: E87.6 - HYPOKALEMIA Status: Acute Current Visit: Yes (3) 36 weeks gestation of SNOMED Code(s): 73531180 ICD Code: Z3A.36 - 36 WEEKS GESTATION OF Status: Acute Current Visit: No (4) Abnormal liver enzymes SNOMED Code(s): 907828893 ICD Code: R74.8 - ABNORMAL LEVELS OF OTHER SERUM ENZYMES Status: Acute Current Visit: No - Patient Summary/Data Operative Procedure(s) Performed: Primary low segment transverse emergency 2 layer closure Complications: None postop. Consults: None Hospital Course: Uneventful - Patient Instructions Showering/Bathing: May Shower, No Tub Bathing/Swimming (6 weeks) Wound/Incision Care: Keep Operative Site/Wound Site Clean and Dry Notify Provider of: Fever, Increased Pain, Swelling and Redness, Drainage, Nausea and/or Vomiting - Discharge Plan *PRESCRIPTION DRUG MONITORING PROGRAM REVIEWED*: Not Applicable *COPY OF PRESCRIPTION DRUG MONITORING REPORT IN PATIENT MARISOL: Not Applicable Home Medications: Home Meds Calcium Carbonate [Calcium] 1 tab PO DAILY 06/12/19 [History] Ferrous Sulfate [Iron] 1 tab PO DAILY 06/12/19 [History] Vit/FA/Fe Fumarate/Se [ MTR] 1 tab PO DAILY 06/12/19 [History] Nitrofurantoin Monohyd/M-Cryst [Macrobid 100 mg Capsule] 100 mg PO BID #20 capsule 06/13/19 [Rx] Potassium Chloride [K-Tab] 10 meq PO DAILY #30 tablet.er 06/15/19 [Rx] Acetaminophen [Tylenol] 650 mg PO Q6H PRN tablet 06/19/19 [Rx] Docusate Sodium [Colace] 100 mg PO Q12H PRN cap 06/19/19 [Rx] Ibuprofen [Motrin] 600 mg PO Q6H PRN tablet 06/19/19 [Rx] Simethicone 80 mg PO PCBED tab.chew 06/19/19 [Rx] Witch Mercedes [Tucks] 1 pad TOP ASDIRECTED PRN pad 06/19/19 [Rx] Referrals: Rico Villalobos MD [Primary Care Provider] - (Patient will call make appointment to see Dr. Villalobos in 2 weeks) - Discharge Summary/Plan Comment DC Time >30 min.: No - Patient Data Vitals - Most Recent: Last Vital Signs Temp 97.8 F 06/19/19 03:00 Pulse 80 06/19/19 03:18 Resp 16 06/19/19 03:00 BP 109/61 06/19/19 03:18 Pulse Ox 97 06/19/19 03:18 Weight - Most Recent: 153 lb 6.4 oz Med Orders - Current: Current Medications Acetaminophen (Tylenol) 650 mg PO Q4H PRN PRN Reason: mild pain or fever Diphenhydramine HCl (Benadryl) 25 mg IVPUSH Q6H PRN PRN Reason: Itching or Nausea Docusate Sodium (Colace) 100 mg PO Q12H PRN PRN Reason: Constipation Last Admin: 06/19/19 03:16 Dose: 100 mg Ephedrine Sulfate (Ephedrine Sulfate) 5 mg IVPUSH SEECOMMENT PRN PRN Reason: Other Oxytocin/Lactated Ringer's (Pitocin In Lr 20 Units/1,000 Ml) 20 unit in 1,000 mls @ 500 mls/hr IV .CONTINUOUS JENNIFER Ibuprofen (Motrin) 600 mg PO Q6H PRN PRN Reason: mild pain or fever Last Admin: 06/17/19 18:51 Dose: 600 mg Naloxone HCl (Narcan) 0.1 mg IVPUSH SEECOMMENT PRN PRN Reason: Respiratory Depression Oxycodone/Acetaminophen (Percocet 325-5 Mg) 1 tab PO Q4H PRN PRN Reason: Pain (moderate 4-6) Last Admin: 06/19/19 03:10 Dose: 1 tab Simethicone (Simethicone) 80 mg PO PCBED [facility] Last Admin: 06/19/19 01:01 Dose: Not Given Sodium Chloride (Saline Flush) 10 ml FLUSH ASDIRECTED PRN PRN Reason: Keep Vein Open Witch Mercedes (Tucks) 1 pad TOP ASDIRECTED PRN PRN Reason: Perineal Comfort Measure Discontinued Medications Cefazolin Sodium (Ancef) Confirm Administered Dose 2 gm .ROUTE .STK-MED ONE Stop: 06/16/19 18:54 Dexamethasone (Dexamethasone) Confirm Administered Dose 4 mg .ROUTE .STK-MED ONE Stop: 06/16/19 18:27 Diphenhydramine HCl (Benadryl) 25 mg IVPUSH Q6H PRN PRN Reason: pruritis Ephedrine Sulfate (Ephedrine Sulfate) 5 mg IVPUSH ASDIRECTED PRN PRN Reason: Hypotension Ephedrine Sulfate (Ephedrine In Ns) Confirm Administered Dose 25 mg .ROUTE .STK- MED ONE Stop: 06/16/19 18:17 Fentanyl (Sublimaze) 100 mcg EPIDUR Q3H PRN PRN Reason: Pain Fentanyl/Bupivacaine HCl (Fentanyl/Bupivacaine/Ns 2 Mcg-0.125% 250 Ml) 250 ml EPIDUR CONTINUOUS PRN PRN Reason: Pain Fentanyl/Bupivacaine HCl (Fentanyl/Bupivacaine/Ns 2 Mcg-0.125% 100 Ml) 100 ml .ROUTE .STK-MED ONE Stop: 06/16/19 00:01 Lactated Ringer's (Ringers, Lactated) 1,000 mls @ 100 mls/hr IV ASDIRECTED JENNIFER Oxytocin/Lactated Ringer's (Pitocin In Lr 10 Units/1,000 Ml) 10 unit in 1,000 mls @ 100 mls/hr IV .CONTINUOUS JENNIFER Oxytocin/Lactated Ringer's (Pitocin In Lr 10 Units/1,000 Ml) 10 unit in 1,000 mls @ 12 mls/hr IV TITRATE JENNIFER; Protocol Dextrose/Lactated Ringer's (Dextrose 5%-Lactated Ringers) 1,000 mls @ 125 mls/ hr IV ASDIRECTED JENNIFER Stop: 06/17/19 04:13 Last Admin: 06/16/19 22:53 Dose: 125 mls/hr Cefazolin Sodium/Dextrose 1 gm (/ Premix) 50 mls @ 100 mls/hr IV Q6H [facility] Stop: 06/17/19 12:29 Last Admin: 06/17/19 12:28 Dose: 100 mls/hr Ketorolac Tromethamine (Toradol) Confirm Administered Dose 30 mg .ROUTE .STK- MED ONE Stop: 06/16/19 18:27 Ketorolac Tromethamine (Toradol) 30 mg IVPUSH Q6H [facility] Stop: 06/17/19 12:31 Last Admin: 06/17/19 12:28 Dose: 30 mg Lidocaine/Epinephrine (Xylocaine-Mpf 2%-Epi 1:200,000) 20 ml .ROUTE .STK-MED ONE Stop: 06/16/19 00:01 Misoprostol (Cytotec) Confirm Administered Dose 50 mcg .ROUTE .STK-MED ONE Stop: 06/16/19 10:15 Last Admin: 06/16/19 10:30 Dose: 50 mcg Misoprostol (Cytotec) 50 mcg VAG Q4HR JENNIFER Last Admin: 06/17/19 14:31 Dose: Not Given Morphine Sulfate (Duramorph Pf) Confirm Administered Dose 10 mg .ROUTE .STK-MED ONE Stop: 06/16/19 18:19 Nalbuphine HCl (Nubain) 10 mg IVPUSH Q2H PRN PRN Reason: Pain Ondansetron HCl (Zofran) Confirm Administered Dose 4 mg .ROUTE .STK-MED ONE Stop: 06/16/19 18:27 Ondansetron HCl (Zofran) 4 mg IVPUSH ONETIME ONE Stop: 06/17/19 00:49 Last Admin: 06/17/19 00:48 Dose: 4 mg Oxytocin (Pitocin) Confirm Administered Dose 20 unit .ROUTE .STK-MED ONE Stop: 06/16/19 18:17 Potassium Chloride (Klor-Con M20) 20 meq PO Q4H JENNIFER Stop: 06/16/19 16:31 Last Admin: 06/17/19 14:28 Dose: Not Given Propofol (Diprivan 20 Ml) Confirm Administered Dose 200 mg .ROUTE .STK-MED ONE Stop: 06/16/19 18:03 Sodium Chloride (Saline Flush) 10 ml FLUSH ASDIRECTED PRN PRN Reason: Keep Vein Open Succinylcholine Chloride (Succinylcholine In Ns Pf) Confirm Administered Dose 100 mg .ROUTE .STK-MED ONE Stop: 06/16/19 18:03
[2019-06-19] MEDS: Ibuprofen 600 MG Tab PO PRN (09:59)
== END 2019-06-19 14:09 | disposition home or self-care (01) | DRG 540 ==
LOC: JD.OB 07:55 → JD.OBCHECK 07:55 → JD.OB 10:15 → OBSVTOIN 18:10 → JD.OB 18:11
PROVIDERS: ADMIT Obstetrics & Gynecology; ATTEND Obstetrics & Gynecology
PROC: 10D00Z1 Extraction of Products of Conception, Low, Open Approach (ICD-10-PCS; principal; 2019-06-16)
DX: O76 Abnormality in fetal heart rate and rhythm complicating labor and delivery (principal); Z37.0 Single live birth; O69.1XX0 Labor and delivery complicated by cord around neck, with compression, not applicable or unspecified; O26.893 Other specified pregnancy related conditions, third trimester; L29.9 Pruritus, unspecified; E87.6 Hypokalemia; R79.89 Other specified abnormal findings of blood chemistry; O26.62 Liver and biliary tract disorders in childbirth; K83.1 Obstruction of bile duct; Z3A.36 36 weeks gestation of pregnancy
CPT/HCPCS: 01967; 01968; 36415; 59025; 74018; 74018-26; 76816; 76819; 76819-26; 80053; 82977; 85025; 86850; 86900; 86901; A9270-GY; J0330; J0690; J1100; J1885; J2270; J2405; J2590; J2704; J7042; J7050

== ENCOUNTER 2024-07-22 13:18 | Emergency (ER) | payer BC ==
[2024-07-22 15:16] LABS: BASOPHILS PERCENT AUTO 0.3 % (0.0-1.0); EOSINOPHILS ABSOLUTE AUTO 0.1 K/mm3 (0.0-0.4); EOSINOPHILS PERCENT AUTO 0.6 % (0.0-6.0); HEMATOCRIT 36.3 % (37.0-47.0); HEMOGLOBIN 12.7 gm/dl (12.0-16.0); IMMATURE GRAN ABSOLUTE AUTO 0.04 K/mm3 (0.00-0.05); IMMATURE GRAN PERCENT AUTO 0.4 % (0.0-0.4); LYMPHOCYTES ABSOLUTE AUTO 2.6 K/mm3 (1.0-4.8); LYMPHOCYTES PERCENT AUTO 23.3 % (24.0-44.0); MEAN CORPUSCULAR HEMOGLOBIN 30.2 pg (28.0-32.0); MEAN CORPUSCULAR VOLUME 86.2 fl (83.0-99.0); MONOCYTES ABSOLUTE AUTO 0.6 K/mm3 (0.0-0.8); MONOCYTES PERCENT AUTO 5.5 % (0.0-8.0); NEUTROPHILS ABSOLUTE AUTO 7.7 K/mm3 (1.8-7.7); NEUTROPHILS PERCENT AUTO 69.9 % (41.0-71.0); PLATELET COUNT,PLT 253 K/mm3 (150-400); RED BLOOD CELL COUNT 4.21 M/mm3 (4.10-5.30); WHITE BLOOD CELL COUNT,WBC 11.07 K/mm3 (3.9-11.3)
[2024-07-22 16:29] LABS: ALANINE AMINOTRANSFERASE,ALT 33 U/L (14-59); ALBUMIN 3.4 g/dl (3.4-5.0); ALKALINE PHOSPHATASE 48 U/L (46-116); ANION GAP 14.5 (5-15); ASPARTATE AMNIOTRANSFERASE,AST 11 U/L (15-37); BILIRUBIN TOTAL 0.2 mg/dL (0.2-1.0); BLOOD UREA NITROGEN,BUN 11 mg/dL (7-18); CALCIUM 8.6 mg/dL (8.5-10.1); CARBON DIOXIDE,CO2 25 mEq/L (21-32); CHLORIDE,CL 104 mEq/L (98-107); CREATININE 0.5 mg/dL (0.55-1.02); ESTIMATED GFR 130 mL/min (>60); GLUCOSE RANDOM 93 mg/dL (70-99); POTASSIUM,K 3.5 mEq/L (3.5-5.1); PROTEIN TOTAL,TP 6.8 g/dl (6.4-8.2); SODIUM,NA 140 mEq/L (136-145)
== END 2024-07-22 16:50 | disposition home or self-care (01) ==
LOC: JD.ED 13:18
DX: O20.9 Hemorrhage in early pregnancy, unspecified (principal); Z3A.14 14 weeks gestation of pregnancy; Z79.899 Other long term (current) drug therapy
CPT/HCPCS: 36415; 76815; 76815-26; 80053; 84702; 85025; 86850; 86900; 86901; 99284